=== PATIENT | male | born 1960 | race Two or more races ===

== ENCOUNTER 2020-08-26 23:17 | Emergency (ER) | payer OTHER ==
[~2020-08-26] VITALS: Ht 170.2 cm; Wt 72.6 kg
[2020-08-27] MEDS ORDERED: ACETAMINOPHEN650 M2 PO (01:10)
[2020-08-27] MEDS ORDERED: BACTRIM DS TAB1 EACH PO (01:10)
== END 2020-08-27 01:25 | disposition home or self-care (01) ==
LOC: ER 23:17
DX: S01.82XA Laceration with foreign body of other part of head, initial encounter (principal); W22.8XXA Striking against or struck by other objects, initial encounter; Y93.89 Activity, other specified; Y92.89 Other specified places as the place of occurrence of the external cause; Y99.8 Other external cause status

== ENCOUNTER 2020-09-04 12:53 | Emergency (ER) | payer OTHER ==
[~2020-09-04] VITALS: Ht 167.6 cm; Wt 72.6 kg
[~2020-09-04 12:53] MED LIST: ACETAMINOPHEN650 M2 PO; BACTRIM DS TAB1 EACH PO
== END 2020-09-04 14:14 | disposition home or self-care (01) ==
LOC: ER 12:53
DX: Z48.02 Encounter for removal of sutures (principal)